=== PATIENT | female | born 1945 | race Caucasian/White ===

== ENCOUNTER 2020-10-19 10:58 | Day surgery (SDC) | payer OTHER, BC ==
[2020-10-16 13:12] VITALS: BMI 22.6
[2020-10-19] MEDS ORDERED: LIDOCAINE HCL/PF 2% SDV 5ML VIAL ONE (11:33)
[2020-10-19] MEDS ORDERED: PROPOFOL 20 ML ONE ×2 (11:33)
[2020-10-19 12:33] VITALS: TEMP 96.7
[2020-10-19 12:50] VITALS: BP 108/68; PULSE 63
== END 2020-10-19 13:00 | disposition home or self-care (01) ==
LOC: FASU-ENDO 10:58
PROVIDERS: ATTEND Internal Medicine Gastroenterology
PROC: 0DJD8ZZ Inspection of Lower Intestinal Tract, Via Natural or Artificial Opening Endoscopic (ICD-10-PCS; principal; 2020-10-19 11:44)
DX: Z12.11 Encounter for screening for malignant neoplasm of colon (principal)